=== PATIENT | female | born 1980 | race Caucasian/White ===

== ENCOUNTER 2021-01-01 12:48 | Emergency (ER) | payer BC, SELFPAY ==
--- NOTE | ~2021-01-01 | XR_ITS ---
EXAMINATION: XR zygomatic arches min 3V EXAM DATE: 01/01/2021 13:41 INDICATION: PAIN Rt cheek, hit by 2 y/o child's head 1 wk ago. TECHNIQUE: Zygomatic arch examination including Lizz, Santoro, angulated, bilateral submental vertex images with head slightly turned. 5 images total. There are no prior studies for comparison. FINDINGS: There are no acute zygomatic arch fractures or dislocations identified. Orbits are intact. Sinuses appear well-aerated. There is no subcutaneous gas. The soft tissue is unremarkable. There are no radiopaque foreign bodies. IMPRESSION: 1. Unremarkable zygomatic exam. Reviewed, dictated and finalized at location A.
[2021-01-01 12:54] VITALS: BP 139/77; PULSE 75; RESP 12; TEMP 36.4; O2SAT 98
--- NOTE | 2021-01-01 13:24 | ED.HEATRA ---
HPI - Head Injury General Chief complaint: Head Injury Stated complaint: HEAD INJURY Time Seen by Provider: 01/01/21 13:20 Source: patient and RN notes reviewed Mode of arrival: ambulatory Limitations: no limitations History of Present Illness HPI Narrative: 40-year-old female presents with concern for feeling foggy after an head injury last week. She reports her toddler hit her in the right cheek area with his head. She reports at that time she experienced pain in the face that radiated to the head. Reports for several days she had a mild headache. Reports she treated symptoms with ibuprofen. She reports since then she has had improved headache, however she is having feeling of fogginess, pain to the right side of her face, sensitivity to light and loud noises, headache with fast movements of her head. She denies any loss of consciousness or vomiting after her injury. She denies any subsequent vomiting or nausea. She denies weakness in any extremity. She denies worsening headache with supine position. Related Data Home Medications Medication Instructions Recorded Confirmed acyclovir 01/01/21 metformin mg PO 01/01/21 sertraline mg 01/01/21 Allergies Allergy/AdvReac Type Severity Reaction Status Date / Time erythromycin base Allergy Intermediate rash Verified 01/01/21 12:59 valacyclovir Allergy Intermediate rash Verified 01/01/21 12:59 Review of Systems Review of Systems: CONSTITUTIONAL: Denies malaise, chills, sweats, or fever. EYES: Denies visual changes, reports sensitivity to light ENT: Denies rhinorrhea, congestion, sinus pain. GASTROINTESTINAL: Denies nausea, vomiting. SKIN: Denies bruising, swelling, laceration, abrasion NEUROLOGIC: Denies numbness, weakness. Reports mild intermittent headache, brain fogginess, sensitivity to noise All systems reviewed & are unremarkable except as noted in HPI and below PMFSH Comments At time of signature, agree with nursing past medical, surgical, social and family history. There is no relevant family history pertinent to the presenting complaint Exam Narrative: GENERAL: Well-appearing, well-nourished, and in no acute distress. HEAD: Normocephalic, atraumatic. EYES: PERRLA, sclera clear, and EOMI. No nystagmus. ENT: Nares clear. Mucous membranes moist. NECK: Supple. No lymphadenopathy. CHEST: No respiratory distress. Speaks in full sentences. HEART: Regular rate and rhythm. SKIN: Warm, dry, no visible rash. No bruising, redness, open skin NEURO: Alert and oriented x3. No focal deficits. Cranial nerves II through XII grossly intact PSYCH: Normal mood and affect Course Course Emergency Course: Patient is aware of diagnosis, understands and agrees to treatment plan. Anticipatory guidance given. Patient agrees to follow-up as directed and is aware of reasons to seek care at the emergency department. Portions of this record may have been created with voice recognition software Vital Signs Vital signs: Vital Signs Temperature 97.6 F 01/01/21 12:54 Pulse Rate 75 01/01/21 12:54 Respiratory Rate 12 01/01/21 12:54 Blood Pressure 139/77 01/01/21 12:54 Pulse Oximetry 98 01/01/21 12:54 Temperature 97.6 F 01/01/21 12:54 Pulse Rate 75 01/01/21 12:54 Respiratory Rate 12 01/01/21 12:54 Blood Pressure 139/77 01/01/21 12:54 Pulse Oximetry 98 01/01/21 12:54 Reviewed. MDM - Head Injury MDM Narrative Medical decision making narrative: Exam findings and imaging show no acute concerns or changes; patient is non-toxic appearing and is in no distress. Patient is appropriate for outpatient treatment and follow-up. Differential Diagnosis Differential diagnosis: Likely concussion without loss of consciousness, epidural hematoma, closed head injury, postconcussion syndrome and subdural hematoma Critical Care Time Critical Care Time Critical Care Time: No Discharge Plan Discharge Clinical Impression: Closed head injury Qualifiers: Encou
== END 2021-01-01 14:03 | disposition home or self-care (01) ==
PROVIDERS: Emergency Provider Nurse Practitioner; PCP Nurse Practitioner Adult Health
DX: S09.90XA Unspecified injury of head, initial encounter (principal); W50.0XXA Accidental hit or strike by another person, initial encounter; E11.9 Type 2 diabetes mellitus without complications; F41.9 Anxiety disorder, unspecified
CPT/HCPCS: 70150; 99213; G0463

== ENCOUNTER 2021-03-20 13:48 | Emergency (ER) | payer BC, SELFPAY ==
--- NOTE | 2021-03-20 13:54 | ED.ABDPAIN ---
HPI - Abdominal Pain General Chief Complaint: Abdominal Pain Stated Complaint: Chest Tightness/Abd pain Time Seen by Provider: 03/20/21 13:54 Source: patient and RN notes reviewed History of Present Illness HPI narrative: Patient is a 40-year-old female who presents the urgent care with complaints of chest tightness/heaviness that radiates to the abdomen and through to the back at times. Patient states that it started yesterday and did light up until this morning where it has been very consistent . Patient denies of any shortness of breath but states that it is difficult to take a deep breath due to the pressure . Patient denies of any past cardiac history. States that she has been nauseated at times but denies of any vomiting. Patient denies of any recent fevers or upper respiratory complaints. No other acute complaints. No acute distress noted. Patient read the plan of care. Some parts of this dictation were generated by voice recognition software and may contain typographical and/or grammatical inaccuracies. Related Data Home Medications Medication Instructions Recorded Confirmed acyclovir 400 mg PO BID 01/01/21 01/01/21 metformin 500 mg PO DAILY 01/01/21 01/01/21 sertraline 100 mg PO DAILY 01/01/21 01/01/21 pravastatin 03/20/21 Allergies Allergy/AdvReac Type Severity Reaction Status Date / Time erythromycin base Allergy Intermediate rash Verified 03/20/21 13:55 valacyclovir Allergy Intermediate rash Verified 03/20/21 13:55 Review of Systems Review of Systems: CONSTITUTIONAL: Denies fever, chills, or sweats. EYES: Denies visual changes, redness, or discharge. ENT: Denies rhinorrhea, congestion, sore throat, or otalgia. CARDIOVASCULAR: Reports of chest pain/heaviness RESPIRATORY: Reports of intermittent shortness of breath GASTROINTESTINAL: Reports of intermittent abdominal pain and nausea without vomiting or diarrhea GENITOURINARY: Denies dysuria or hematuria. SKIN: Denies rash or itching. MUSCULOSKELETAL: Denies back pain, joint pain, or myalgia. NEUROLOGIC: Denies headache, numbness, or weakness. All other systems reviewed are negative, except as documented in HPI. PMFSH Comments At the time of my signature, I reviewed and agree with the nursing past medical, surgical, social, and family history. There is no relevant family history pertinent to the patient complaint. Exam Narrative: GENERAL: This is a well-nourished, well-developed patient, in no apparent distress. HEAD: normocephalic, atraumatic. EYES: PERRL. Sclera clear/white. Vision is grossly intact. EARS: External ears normal, auditory canals clear and without drainage, TMs normal without perforation. Hearing grossly intact. NOSE: External nose normal with no obvious nasal discharge, nares without redness, no rhinorrhea. THROAT: Mucous membranes moist, posterior pharynx clear. NECK: Neck supple, non-tender without lymphadenopathy, masses or thyromegaly. CARDIOVASCULAR: Regular rate and rhythm without murmurs, gallops, or rubs. RESPIRATORY: Clear to auscultation. Breath sounds equal bilaterally. No wheezes, rales, or rhonchi. GASTROINTESTINAL: Abdomen soft, non-tender, nondistended. Bowel sounds are active. No hepato-splenomegaly, or palpable masses. No guarding. SKIN: warm, intact with no suspicious lesions or rash, good texture and turgor. NEURO: awake, alert, and oriented to person, place and time. There were no obvious focal neurologic abnormalities. EXTREMITIES: No clubbing, cyanosis, or edema. No joint tenderness, effusion, or edema noted. No calf tenderness. Negative Homans sign bilaterally. BACK: Nontender without deformity or crepitance. No flank tenderness. Course Vital Signs Vital signs: Vital Signs Temperature 97.9 F 03/20/21 14:01 Pulse Rate 92 03/20/21 14:01 Respiratory Rate 20 03/20/21 14:01 Blood Pressure 143/90 H 03/20/21 14:01 Pulse Oximetry 99 03/20/21 14:01 Temperature 97.9 F 03/20/21 14:01 Pulse Rate 92
[2021-03-20 14:01] VITALS: BP 143/90; PULSE 92; RESP 20; TEMP 36.6; O2SAT 99
--- NOTE | 2021-03-20 14:13 | ECG_ITS ---
Measurements Intervals [place] Rate: 88 P: 63 DE: 124 QRS: 50 QRSD: 102 T: 7 QT: 366 QTc: 443 Interpretive Statements SINUS RHYTHM BORDERLINE ST-T WAVE ABNORMALITY- INFERIOR LEADS BORDERLINE ECG Electronically Signed On 03-20-2021 14:53:28 [employer] by Aaron Connor D.O.
[2021-03-20 14:31] LABS: Glucose Point of Care 151 mg/dl (65-105)
== END 2021-03-20 14:42 | disposition left against medical advice (07) ==
PROVIDERS: Emergency Provider Nurse Practitioner Family; PCP Nurse Practitioner Adult Health
DX: R07.9 Chest pain, unspecified (principal); E11.9 Type 2 diabetes mellitus without complications; Z79.84 Long term (current) use of oral hypoglycemic drugs
CPT/HCPCS: 82948; 93005; 99213; G0463

== ENCOUNTER 2022-09-22 12:23 | Outpatient (CLI) | payer OTHER, SELFPAY ==
--- NOTE | ~2022-09-22 | XR_ITS ---
EXAMINATION: [id number] DATE: 09/22/2022 13:00 INDICATION: Knee pain. TECHNIQUE: A single view of left knee was obtained. COMPARISON: None. FINDINGS: Bone alignment is normal. No fracture. There is mild osteoarthritis of medial and lateral c ompartments characterized by tiny osteophytes. No joint space narrowing. IMPRESSION: 1. Mild left knee osteoarthritis. Reviewed, dictated and finalized at location A.
--- NOTE | ~2022-09-22 | XR_ITS ---
EXAMINATION: XR knee RT min 4V DATE: 09/22/2022 13:00 INDICATION: Right knee pain. TECHNIQUE: 4 views of right knee including weightbearing views were obtained. COMPARISON: None. FINDINGS: There is varus angulation at the knee. No fracture. There is severe osteoarthritis of media l compartment, moderate osteoarthritis of patellofemoral compartment, and mild osteoarthritis of late ral compartment. No knee joint effusion. IMPRESSION: 1. Severe right knee osteoarthritis. Reviewed, dictated and finalized at location A.
== END 2022-09-22 12:24 | disposition home or self-care (01) ==
LOC: CHSIMG 12:27
PROVIDERS: PCP Internal Medicine; Visit Provider Internal Medicine
DX: R79.89 Other specified abnormal findings of blood chemistry (principal); M25.561 Pain in right knee; M17.0 Bilateral primary osteoarthritis of knee
CPT/HCPCS: 73560; 73564